=== PATIENT | female | born 1975 | race Caucasian/White ===

== ENCOUNTER 2017-11-21 09:58 | Emergency (ER) | payer OTHER ==
--- NOTE | 2017-11-21 12:02 | RAD REPORT ---
EXAM DESCRIPTION: VAS - Extremity Venous Uni Ltd - 11/21/2017 11:54 am CLINICAL HISTORY: r/o dvt Leg swelling and edema. COMPARISON: No comparisons FINDINGS: Left lower extremity venous system was interrogated with Doppler technique. Normal flow, c ompressibility and augmentation was noted. There is no DVT present. IMPRESSION: No evidence of left lower extremity deep venous thrombosis.
--- NOTE | 2017-11-21 12:05 | EDPHYS ---
Physician Documentation [facility] Name: Jose C Davalos Age: 42 yrs Sex: Female : 1975 Arrival Date: 11/21/2017 Time: 10:01 Bed 12 Private MD: Tapan Ward E ED Physician Marc Álvarez HPI: 11/21 11:10 This 42 yrs old Female presents to ER via Wheelchair with complaints of Knee ps1 Pain. 11:10 Onset was a month ago and worsened over last couple of days. States that the injury is ps1 atraumatic. Associated with pain localized to popliteal area of left knee. No surrounding skin color changes. No effusion. Patient is now non weight bearing. Pain rated moderate and worse with movement. Recent travel approximately 4 hours to [facility]. No other DVT risk factors other than moderate obesity. . 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 - Ebola Screening: : Patient negative for fever greater than or equal to 101.5 degrees Fahrenheit, and additional compatible Ebola Virus Disease symptoms Patient denies exposure to infectious person Patient denies travel to an Ebola-affected area in the 21 days before illness onset No symptoms or risks identified at this time. - Social history:: Smoking status: Patient/guardian denies using tobacco. ROS: 11:10 Constitutional: Negative for fever, chills, and weight loss, Eyes: Negative for injury, ps1 pain, redness, and discharge, Cardiovascular: Negative for chest pain, palpitations, and edema, Respiratory: Negative for shortness of breath, cough, wheezing, and pleuritic chest pain, Abdomen/GI: Negative for abdominal pain, nausea, vomiting, diarrhea, and constipation, Skin: Negative for injury, rash, and discoloration, Neuro: Negative for headache, weakness, numbness, tingling, and seizure. 11:10 MS/extremity: Positive for pain, of the posterior aspect of left knee. Exam: 11:10 Constitutional: This is a well developed, well nourished patient who is awake, alert, ps1 and in no acute distress. Head/Face: Normocephalic, atraumatic. Eyes: Pupils equal round and reactive to light, extra-ocular motions intact. Lids and lashes normal. Conjunctiva and sclera are non-icteric and not injected. Chest/axilla: Normal chest wall appearance and motion. Nontender with no deformity. No lesions are appreciated. Cardiovascular: Regular rate and rhythm. No gallops, murmurs, or rubs. Normal PMI, no JVD. No pulse deficits. Respiratory: Lungs have equal breath sounds bilaterally, clear to auscultation and percussion. No rales, rhonchi or wheezes noted. No increased work of breathing, no retractions or nasal flaring. Abdomen/GI: Soft, non-tender, with normal bowel sounds. No distension or tympany. No guarding or rebound. No evidence of tenderness throughout. 11:10 Musculoskeletal/extremity: Extremities: grossly normal except: noted in the posterior aspect of left knee: pain, There is no evidence of contusion, ecchymosis, laxity or effusion. Vital Signs: 11:25 BP 137 / 84; Pulse 86; Resp 16; Temp 98.2; Pulse Ox 98% on R/A; Pain 8/10; iw MDM: 11:08 Patient medically screened. ps1 12:05 Data reviewed: vital signs, nurses notes, radiologic studies, doppler, and as a result, ps1 I will discharge patient, administer steroids, medrol dosepack and robaxin. Counseling: I had a detailed discussion with the patient and/or guardian regarding: the historical points, exam findings, and any diagnostic results supporting the discharge/admit diagnosis, the need for outpatient follow up, for definitive care, an painter spray, a orthopedic surgeon. 11/21 11:08 Order name: US Extremity Venous Unilateral Ltd; Complete Time: 12:03 ps1 11/21 11:08 Order name: Knee Immobilizer; Complete Time: 12:42 ps1 Administered Medications: 12:10 Drug: Decadron 10 mg Route: PO; dm5 12:30 Follow up: Response: No adverse reaction iw 12:10 Drug: TORadol 30 mg Route: IM; Site: right deltoid; dm5 12:30 Follow up: Response: No adverse reaction; Pain is decreased iw Disposition: 11/21/17 12:04 Discharged to Home. Impression: Pain in left knee. - Condition is Stable. - Discharge Instructions: Knee Pain. - Prescriptions for Robaxin 500 mg Oral Tablet - take 2 tablet by ORAL route every 6 hours As needed; 40 tablet. Medrol (Brendan) 4 mg Oral Tablets, Dose Pack - take 1 tablet by ORAL route as directed - follow package instructions; 1 packet. - Work release form, Medication Reconciliation Form, Thank You Letter, Antibiotic Education, Prescription Opioid Use form. - Follow up: Tapan Ward MD; When: As needed; Reason: Further diagnostic work-up, Continuance of care. Follow up: Emergency Department; When: As needed; Reason: Worsening of condition. - Problem is an ongoing problem. - Symptoms have worsened. Signatures: Dispatcher [employer] Julieta Bay RN RN dm5 Agustina Child RN RN iw Marc Álvarez MD MD ps1 Corrections: (The following items were deleted from the chart) 12:52 12:04 11/21/2017 12:04 Discharged to Home. Impression: Pain in left knee. Condition is dm5 Stable. Forms are Medication Reconciliation Form, Thank You Letter, Antibiotic Education, Prescription Opioid Use. Follow up: Tapan Ward; When: As needed; Reason: Further diagnostic work-up, Continuance of care. Follow up: Emergency Department; When: As needed; Reason: Worsening of condition. Problem is an ongoing problem. Symptoms have worsened. ps1
--- NOTE | 2017-11-21 12:05 | ER ---
Nurse's Notes [facility] Name: Jose C Davalos Age: 42 yrs Sex: Female : 1975 Arrival Date: 11/21/2017 Time: 10:01 Bed 12 Private MD: Tapan Ward E Diagnosis: Pain in left knee Presentation: 11/21 10:32 Presenting complaint: Patient states: has had left knee pain X 1 month, unknown injury, iw also has right knee pain. Transition of care: patient was not received from another setting of care. Onset of symptoms was October 22, 2017. Risk Assessment: Do you want to hurt yourself or someone else? Patient reports no desire to harm self or others. Initial Sepsis Screen: Does the patient meet any 2 criteria? No. Patient's initial sepsis screen is negative. Does the patient have a suspected source of infection? No. Patient's initial sepsis screen is negative. Care prior to arrival: None. 10:32 Method Of Arrival: Wheelchair iw 10:32 Acuity: AJ 4 iw Triage Assessment: 12:52 General: Appears in no apparent distress. Behavior is calm, cooperative. 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 - Ebola Screening: : Patient negative for fever greater than or equal to 101.5 degrees Fahrenheit, and additional compatible Ebola Virus Disease symptoms Patient denies exposure to infectious person Patient denies travel to an Ebola-affected area in the 21 days before illness onset No symptoms or risks identified at this time. - Social history:: Smoking status: Patient/guardian denies using tobacco. Screenin:00 Abuse screen: Denies threats or abuse. Denies injuries from another. Nutritional dm5 screening: No deficits noted. Tuberculosis screening: No symptoms or risk factors identified. Fall Risk None identified. Assessment: 12:00 Reassessment: Patient appears in no apparent distress at this time. No changes from dm5 previously documented assessment. Patient and/or family updated on plan of care and expected duration. Pain level reassessed. Pain: Complains of pain in posterior aspect of left knee. Vital Signs: 11:25 BP 137 / 84; Pulse 86; Resp 16; Temp 98.2; Pulse Ox 98% on R/A; Pain 8/10; iw ED Course: 10:01 Patient arrived in ED. rg4 10:01 Tapan Ward MD is Private Physician. rg4 10:31 Agustina Child RN is Primary Nurse. iw 10:31 Marc Álvarez MD is Attending Physician. ps1 10:34 Triage completed. iw 10:34 Arm band placed on. iw 11:54 Patient taken to ultrasound. via wheelchair. lc3 11:54 Ultrasound completed. Patient tolerated well. Patient moved back from ultrasound. lc3 11:54 US Extremity Venous Unilateral Ltd In Process Unspecified. EDMS 12:00 Patient has correct armband on for positive identification. dm5 12:00 No provider procedures requiring assistance completed. Patient did not have IV access dm5 during this emergency room visit. 12:03 Tapan Ward MD is Referral Physician. ps1 Administered Medications: 12:10 Drug: Decadron 10 mg Route: PO; dm5 12:30 Follow up: Response: No adverse reaction iw 12:10 Drug: TORadol 30 mg Route: IM; Site: right deltoid; dm5 12:30 Follow up: Response: No adverse reaction; Pain is decreased iw Outcome: 12:04 Discharge ordered by . ps1 12:51 Discharged to home ambulatory, with crutches. dm5 12:51 Condition: good 12:51 Discharge instructions given to patient, Instructed on discharge instructions, follow up and referral plans. medication usage, Demonstrated understanding of instructions, follow-up care, medications, crutch walking, Prescriptions given X 2. 12:52 Patient left the ED. dm5 Signatures: Dispatcher [employer] EDNE Julieta Alvarado, RN RN dm5 Agustina Child, SEJAL RN iw Raquel Moses Rubi rg4 Marc Álvarez MD MD ps1
[2017-11-21] MEDS ORDERED: DEXAMETHASONE 4 MG TAB ONE (12:21)
[2017-11-21] MEDS ORDERED: KETOROLAC 30 MG/ML INJ ONE (12:21)
[2017-11-21 13:03] VITALS: BP 137/84; TEMP 98.2; O2SAT 98
== END 2017-11-21 12:52 | disposition home or self-care (01) ==
LOC: ER 09:58
DX: M25.562 Pain in left knee (principal)
CPT/HCPCS: 93971; 96372; 99284

== ENCOUNTER 2019-05-29 08:45 | Emergency (ER) | payer OTHER ==
[2019-05-29] MEDS ORDERED: ACETAMINOPHEN 325 MG TABLET ONE (09:46)
[2019-05-29] MEDS ORDERED: IBUPROFEN 400 MG TAB ONE (09:46)
--- NOTE | 2019-05-29 10:09 | RAD REPORT ---
EXAM DESCRIPTION: US - Extremity Venous Uni Ltd - 05/29/2019 9:58 am CLINICAL HISTORY: PAIN Leg swelling and edema. COMPARISON: Extremity Venous Uni Ltd dated 11/21/2017 FINDINGS: Right lower extremity venous system was interrogated with Doppler technique. Normal flow, compressibility and augmentation was noted. There is no DVT present. IMPRESSION: No evidence of right lower extremity deep venous thrombosis.
--- NOTE | 2019-05-29 10:28 | ER ---
Nurse's Notes [facility] Name: Jose C Davalos Age: 43 yrs Sex: Female : 1975 Arrival Date: 05/29/2019 Time: 08:49 Bed 11 Private MD: Diagnosis: Pain in right knee Presentation: 05/29 09:07 Presenting complaint: Patient states: L knee pain that became worse yesterday, is tight ss and swollen. Pt has appointment with Dr. Driscoll regarding concerns tomorrow. history of chronic knee issues. Transition of care: patient was not received from another setting of care. Onset of symptoms was May 28, 2019. Risk Assessment: Do you want to hurt yourself or someone else? Patient reports no desire to harm self or others. Initial Sepsis Screen: Does the patient meet any 2 criteria? No. Patient's initial sepsis screen is negative. Does the patient have a suspected source of infection? No. Patient's initial sepsis screen is negative. Care prior to arrival: None. 09:07 Method Of Arrival: Ambulatory ss 09:07 Acuity: AJ 5 ss Historical: - Allergies: 09:09 NKA; ss - Home Meds: 09:09 None [Active]; ss - PMHx: 09:09 OA bilateral knees; ss - PSHx: 09:09 Tubal ligation; Appendectomy; Knee surgery; ss - Immunization history:: Adult Immunizations up to date. - Coronavirus screen:: The patient has NOT traveled to [place], [place], or [place] in the past 14 days. Proceed with normal triage process as indicated. - Social history:: Smoking status: Patient denies any tobacco usage or history of. - Ebola Screening: : Patient denies exposure to infectious person Patient denies travel to an Ebola-affected area in the 21 days before illness onset. Screenin:10 Abuse screen: Denies threats or abuse. Denies injuries from another. Nutritional ss screening: No deficits noted. Tuberculosis screening: Never had TB. Fall Risk None identified. Assessment: 09:10 General: Appears uncomfortable, Behavior is calm, cooperative. Pain: Complains of pain ss in left knee Pain currently is 5 out of 10 on a pain scale. Quality of pain is described as tender, tight Is continuous. Pain: Aggravated by weight bearing. Neuro: Level of Consciousness is awake, alert, obeys commands, Oriented to person, place, time, situation. Cardiovascular: Capillary refill < 3 seconds is brisk in bilateral fingers Patient's skin is warm and dry. Cardiovascular: Pulses are palpable in right dorsalis pedis artery and left dorsalis pedis artery. Respiratory: Respiratory effort is even, unlabored, Respiratory pattern is regular, symmetrical. GI: Patient currently denies diarrhea, nausea, vomiting. : No signs and/or symptoms were reported regarding the genitourinary system. EENT: Nares are clear Oral mucosa is moist. Throat is clear. Derm: Skin is intact, is healthy with good turgor, Skin is pink, warm \T\ dry. normal. Musculoskeletal: Circulation, motion, and sensation intact. Range of motion: intact in all extremities, Swelling present in left knee. Vital Signs: 09:09 BP 157 / 96; Pulse 94; Resp 16; Temp 97.8(TE); Pulse Ox 99% on R/A; Weight 102.06 kg; ss Height 5 ft. 0 in. (152.40 cm); Pain 5/10; 09:09 Body Mass Index 43.94 (102.06 kg, 152.40 cm) ss ED Course: 08:49 Patient arrived in ED. as 09:07 Kati Davison, SEJAL is Primary Nurse. ss 09:09 Triage completed. ss 09:09 Arm band placed on right wrist. ss 09:10 Patient has correct armband on for positive identification. Bed in low position. Call ss light in reach. 09:12 Demetri Canchola PA is PHCP. cp 09:12 Zion Cohen MD is Attending Physician. cp 10:05 US Extremity Venous Unilateral Ltd In Process Unspecified. EDMS 10:27 XRAY Knee RIGHT 3 view In Process Unspecified. EDMS 10:27 Jass Travis MD is Referral Physician. cp 10:40 No provider procedures requiring assistance completed. Patient did not have IV access ss during this emergency room visit. Marcos wrap to right knee. Administered Medications: 10:04 Drug: Ibuprofen 800 mg Route: PO; ss 10:39 Follow up: Response: No adverse reaction; Pain is decreased ss 10:04 Drug: Tylenol 650 mg Route: PO; ss 10:40 Follow up: Response: No adverse reaction; Pain is decreased ss Outcome: 10:28 Discharge ordered by . cp 10:40 Discharged to home ambulatory. ss 10:40 Condition: good 10:40 Discharge instructions given to patient, Instructed on discharge instructions, follow up and referral plans. medication usage, Demonstrated understanding of instructions, follow-up care, medications, Prescriptions given X 1. 10:42 Patient left the ED. ss Signatures: Dispatcher [employer] Ne Worrell Shelby, RN RN ss Demetri Canchola PA PA cp Corrections: (The following items were deleted from the chart) 09:57 09:07 Presenting complaint: Patient states: Pt reports her pain became worse yesterday, ss is tight and swollen. Pt has appointment with Dr. Driscoll regarding concerns tomorrow. history of chronic knee issues ss
--- NOTE | 2019-05-29 10:28 | EDPHYS ---
Physician Documentation [facility] Name: Jose C Davalos Age: 43 yrs Sex: Female : 1975 Arrival Date: 05/29/2019 Time: 08:49 Bed 11 Private MD: ED Physician Zion Cohen HPI: 05/29 09:25 This 43 yrs old Female presents to ER via Ambulatory with complaints of Knee cp Pain - swelling. 09:25 The patient presents with pain, that is acute, tenderness. The complaints affect the cp posterior aspect of right knee, right calf and right knee. 09:25 Onset: The symptoms/episode began/occurred yesterday. Modifying factors: the symptoms cp are aggravated by weight bearing, bending knee. Treatment prior to arrival includes: no previous treatment. Historical: - Allergies: 09:09 NKA; ss - Home Meds: 09:09 None [Active]; ss - PMHx: 09:09 OA bilateral knees; ss - PSHx: 09:09 Tubal ligation; Appendectomy; Knee surgery; ss - Immunization history:: Adult Immunizations up to date. - Coronavirus screen:: The patient has NOT traveled to [place], [place], or [place] in the past 14 days. Proceed with normal triage process as indicated. - Social history:: Smoking status: Patient denies any tobacco usage or history of. - Ebola Screening: : Patient denies exposure to infectious person Patient denies travel to an Ebola-affected area in the 21 days before illness onset. ROS: 09:30 Constitutional: Negative for body aches, chills, fever. cp 09:30 Cardiovascular: Negative for chest pain. cp 09:30 Respiratory: Negative for cough, shortness of breath. 09:30 Abdomen/GI: Negative for abdominal pain. 09:30 MS/extremity: Positive for pain, swelling, tenderness, of the right knee, Negative for injury or acute deformity, decreased range of motion, paresthesias. 09:30 Skin: Negative for rash. 09:30 All other systems are negative. Exam: 09:35 Constitutional: The patient appears in no acute distress, alert, awake, non-toxic, well cp developed, well nourished, obese. 09:35 Head/Face: Normocephalic, atraumatic. cp 09:35 Cardiovascular: Rate: normal. 09:35 Respiratory: the patient does not display signs of respiratory distress, Respirations: normal. 09:35 Musculoskeletal/extremity: Extremities: grossly normal except: noted in the left knee and left lower leg: pain, tenderness, very mild swelling, Joints: the right knee displays pain at rest, painful range of motion, tenderness. 09:35 Skin: cellulitis, is not appreciated, no rash present. Vital Signs: 09:09 BP 157 / 96; Pulse 94; Resp 16; Temp 97.8(TE); Pulse Ox 99% on R/A; Weight 102.06 kg; ss Height 5 ft. 0 in. (152.40 cm); Pain 5/10; 09:09 Body Mass Index 43.94 (102.06 kg, 152.40 cm) ss MDM: 09:16 Patient medically screened. cp 09:30 Differential diagnosis: closed fracture, tendonitis, DVT, meniscus tear. cp 10:28 Data reviewed: vital signs, nurses notes, radiologic studies, plain films, ultrasound. cp 10:28 Test interpretation: by ED physician or midlevel provider: plain radiologic studies, cp xrays of right knee negative for fracture. Counseling: I had a detailed discussion with the patient and/or guardian regarding: the historical points, exam findings, and any diagnostic results supporting the discharge/admit diagnosis, radiology results, the need for outpatient follow up, a orthopedic surgeon, to return to the emergency department if symptoms worsen or persist or if there are any questions or concerns that arise at home. 05/29 09:17 Order name: US Extremity Venous Unilateral Ltd cp 05/29 09:17 Order name: XRAY Knee RIGHT 3 view cp 05/29 10:27 Order name: Marcos wrap-joint; Complete Time: 10:40 cp Administered Medications: 10:04 Drug: Ibuprofen 800 mg Route: PO; ss 10:39 Follow up: Response: No adverse reaction; Pain is decreased ss 10:04 Drug: Tylenol 650 mg Route: PO; ss 10:40 Follow up: Response: No adverse reaction; Pain is decreased ss Disposition: 11:00 Chart complete. cp 05/30 06:59 Co-signature as Attending Physician, Zion Cohen MD. rn Disposition: 05/29/19 10:28 Discharged to Home. Impression: Pain in right knee. - Condition is Stable. - Discharge Instructions: How to Use a Knee Brace, Knee Pain. - Prescriptions for Naprosyn 500 mg Oral Tablet - take 1 tablet by ORAL route 2 times per day take with food; 20 tablet. - Medication Reconciliation Form, Thank You Letter, Antibiotic Education, Prescription Opioid Use form. - Work release form (05/29/19 10:46). bd - Follow up: Jass Travis MD; When: Tomorrow; Reason: Recheck today's complaints. - Problem is new. - Symptoms have improved. Signatures: Dispatcher [employer] EDMS Zion Cohen MD MD rn Smirch, Shelby, RN RN ss Demetri Canchola PA PA cp Dirrim, Barbara bd Corrections: (The following items were deleted from the chart) 05/29 10:42 10:28 05/29/2019 10:28 Discharged to Home. Impression: Pain in right knee. Condition is ss Stable. Forms are Medication Reconciliation Form, Thank You Letter, Antibiotic Education, Prescription Opioid Use. Follow up: Jass Travis; When: Tomorrow; Reason: Recheck today's complaints. Problem is new. Symptoms have improved. cp
--- NOTE | 2019-05-29 11:01 | RAD REPORT ---
EXAM DESCRIPTION: RAD - Knee Right 3 View - 05/29/2019 10:26 am CLINICAL HISTORY: PAIN, no trauma history noted COMPARISON: No comparisonsNone. FINDINGS: No fracture, dislocation or periosteal reaction.Small a moderate joint effusion is present . Medial compartment narrowing is present with marginal spurring. Patellofemoral marginal spurring al so present. No foreign body or other soft tissue abnormality. IMPRESSION: Mild to moderate joint effusion with knee joint degenerative change. No acute bone finding. Clinical concerns for internal derangement or occult bony injury could be further assessed with MR im aging.
[2019-05-29 11:44] VITALS: BP 157/96; TEMP 97.8; O2SAT 99
== END 2019-05-29 10:42 | disposition home or self-care (01) ==
LOC: ER 08:45
DX: M25.561 Pain in right knee (principal)
CPT/HCPCS: 93971; 99284